=== PATIENT | female | born 1980 | race Caucasian/White ===

== ENCOUNTER 2016-11-04 23:31 | Inpatient (IN) | payer OTHER ==
[~2016-11-04] VITALS: Ht 162.6 cm; Wt 116.8 kg
[2016-11-04] MEDS ORDERED: ALBUTEROL 0.5% (NEB) 2.5 MG/0.5 ML AMP INH STA (23:35)
[2016-11-04] MEDS ORDERED: METHYLPREDNISOLONE 125 MG INJ IV STA (23:35)
[2016-11-04] MEDS ORDERED: IPRATROPIUM (NEB) 0.5 MG/2.5 ML AMP INH STA (23:35)
[2016-11-05] MEDS ORDERED: morphine 2 MG INJ IV STA (00:05)
[2016-11-05] MEDS ORDERED: ONDANSETRON 4 MG INJ IV STA (00:05)
--- NOTE | 2016-11-05 00:15 | RADRPT ---
PROCEDURE: XR Chest. CLINICAL INDICATION: Asthma TECHNIQUE: AP Portable chest. COMPARISON: No pertinent prior examinations were submitted for comparison. FINDINGS: The cardiomediastinal silhouette is normal. The lungs are clear. The osseous structures are unrema rkable. IMPRESSION: No acute findings. RPTAT: HIKT .Gilbert Perry MD, MD Date Time Electronically viewed and signed by .Gilbert Perry MD, on 11/05/2016 00:14 .T/
[2016-11-05 00:16] LABS: ADD SCAN DIFF NO
[2016-11-05 00:20] LABS: BASOPHILS % 0.4 % (0.0-2.0); EOSINOPHILS # 0.2 10^3/ul (0.0-0.5); EOSINOPHILS % 2.2 % (0.0-7.0); HEMATOCRIT 42.3 % (37.0-47.0); HEMOGLOBIN 14.5 g/dl (12.0-16.0); LYMPHOCYTES # 3.3 10^3/ul (0.8-2.9); LYMPHOCYTES % 33.9 % (15.0-51.0); MEAN CORPUSCULAR HGB CONC 34.3 g/dl (32.0-37.0); MEAN CORPUSCULAR VOLUME 93.4 fl (82.0-101.0); MEAN PLATELET VOLUME 9.8 fl (7.4-10.4); MONOCYTE # 0.7 10^3/ul (0.3-0.9); MONOCYTES % 7.2 % (0.0-11.0); NEUTROPHIL # 5.5 10^3/ul (1.6-7.5); PLATELET COUNT 263 10^3/UL (140-415); RED BLOOD COUNT 4.53 10^6/ul (4.20-5.40); RED CELL DISTRIBUTION WIDTH 12.3 % (11.5-14.5); WHITE BLOOD COUNT 9.8 10^3/ul (4.8-10.8)
[2016-11-05 00:41] LABS: CALCIUM 9.7 mg/dl (8.4-10.2); CREATININE 0.97 mg/dl (0.44-1.00); POTASSIUM 4.1 mmol/L (3.5-5.1)
--- NOTE | 2016-11-05 03:59 | ERA ---
ER Documentation Chief Complaint Date/Time DATE: 11/05/16 TIME: 03:53 Chief Complaint Pt reports asthma exacerbation r/t exposure to [place] HPI This is a 36-year-old female who comes in with reports of asthma exacerbation secondary to cleaning products patient had a jugular asthma and has been getting progressively worse when she is in a halo no relief. Given treatment EMS. No nausea no vomiting no fevers no chills ROS All systems reviewed and are negative except as per history of present illness. Allergies Allergies: Coded Allergies: No Known Allergy (Unverified , 11/04/16) PMhx/Soc History of Surgery: Yes (R hip surgery, X 3, L foot ) Anesthesia Reaction: No Hx Neurological Disorder: No Hx Respiratory Disorders: Yes (Asthma) Hx Cardiac Disorders: No Hx Psychiatric Problems: No Hx Miscellaneous Medical Probl: Yes (Chronic Sinus Infection.) Hx Alcohol Use: No Hx Substance Use: No Hx Tobacco Use: Yes Smoking Status: Current every day smoker Physical Exam Vitals Vital Signs Date Time Temp Pulse Resp B/P Pulse Ox O2 Delivery O2 Flow Rate FiO2 11/05/16 02:41 98.1 85 22 114/61 95 Nasal Cannula 2.0 11/05/16 01:20 98.1 93 22 120/79 96 Nasal Cannula 2.0 11/04/16 23:58 4 11/04/16 23:58 98 36 97 Simple Mask 8.0 11/04/16 23:38 98.1 108 24 130/71 91 Physical Exam Const: [] Head: Atraumatic Eyes: Normal Conjunctiva ENT: Normal External Ears, Nose and Mouth. Neck: Full range of motion..~ No meningismus. Resp: Clear to auscultation bilaterally Cardio: Regular rate and rhythm, no murmurs Abd: Soft, non tender, non distended. Normal bowel sounds Skin: No petechiae or rashes Back: No midline or flank tenderness Ext: No cyanosis, or edema Neur: Awake and alert Psych: Normal Mood and Affect Result Diagram: 11/04/16 2350 11/04/16 2350 Results 24 hrs Laboratory Tests Test 11/04/16 23:50 White Blood Count 9.810^3/ul Red Blood Count 4.5310^6/ul Hemoglobin 14.5g/dl Hematocrit 42.3% Mean Corpuscular Volume 93.4fl Mean Corpuscular Hemoglobin 32.0pg Mean Corpuscular Hemoglobin Concent 34.3g/dl Red Cell Distribution Width 12.3% Platelet Count 31875^3/UL Mean Platelet Volume 9.8fl Neutrophils % 56.0% Lymphocytes % 33.9% Monocytes % 7.2% Eosinophils % 2.2% Basophils % 0.4% Nucleated Red Blood Cells % 0.0/100WBC Neutrophils # 5.510^3/ul Lymphocytes # 3.310^3/ul Monocytes # 0.710^3/ul Eosinophils # 0.210^3/ul Basophils # 0.010^3/ul Nucleated Red Blood Cells # 0.010^3/ul Sodium Level 138mmol/L Potassium Level 4.1mmol/L Chloride Level 108mmol/L Carbon Dioxide Level 23mmol/L Anion Gap 11 Blood Urea Nitrogen 18mg/dl Creatinine 0.97mg/dl Glucose Level 123mg/dl Calcium Level 9.7mg/dl Current Medications Medications (Trade) Dose Ordered Sig/Chidi Route PRN Reason Start Time Stop Time Status Last Admin Dose Admin Albuterol (Proventil 0.5% (Neb)) 10 mg ONCE STAT INH 11/04/16 23:35 11/04/16 23:37 DC 11/04/16 23:58 Ipratropium [place] (Atrovent 0.02% (Neb)) 1 mg ONCE STAT INH 11/04/16 23:35 11/04/16 23:37 DC 11/04/16 23:58 Methylprednisolone Sodium Succinate (Solu-Medrol) 125 mg ONCE STAT IV 11/04/16 23:35 11/04/16 23:37 DC 11/04/16 23:56 Morphine Sulfate (morphine) 2 mg ONCE STAT IV 11/05/16 00:05 11/05/16 00:06 DC 11/05/16 00:14 Ondansetron HCl (Zofran Inj) 4 mg ONCE STAT IV 11/05/16 00:05 11/05/16 00:06 DC 11/05/16 00:14 Procedures/[facility] EKG: Rate/Rhythm: [Normal Sinus Rhythm] QRS, ST, T-waves: [No changes consistent w/ acute ischemia] Impression: [No evidence of ischemia or arrhythmia] Chest X-ray 1V Interpreted by me: Soft Tissue: No acute abnormalities Bones: No acute abnormalities Mediastinum/Cardiac Silhouette/Lungs: [No acute abnormalities] Patient's respiratory symptoms have not responded to normal outpatient therapy and will require inpatient workup, monitoring, and treatment. Accepting Care Team: Current data and ongoing care discussed. Time: 4 AM Primary Provider: Hospitalist Consulting: [XOXOXO] Outstanding Data: none Departure Diagnosis: Primary Impression: Asthma with acute exacerbation Qualified Code: J45.51 - Severe persistent asthma with acute exacerbation Condition: Serious BRADY STEVENS November 05, 2016 03:59
[2016-11-05 04:24] VITALS: PULSE 89; TEMP 98.1
[2016-11-05 05:09] VITALS: BP 107/55; RESP 18
[2016-11-05 05:43] VITALS: Ht 162.6 cm; Wt 116.8 kg
[2016-11-05] MEDS ORDERED: ACETAMINOPHEN 325 MG TAB PO PRN (06:00)
[2016-11-05] MEDS ORDERED: ONDANSETRON 4 MG INJ IV PRN (06:00)
[2016-11-05] MEDS ORDERED: ALBUTEROL/IPRATROPIUM (NEB) 3 ML AMP HHN PRN (06:00)
[2016-11-05 07:29] VITALS: BP 104/59; RESP 22
--- NOTE | 2016-11-05 07:36 | HP ---
DATE OF ADMISSION: 11/05/2016 TIME SEEN: 5:30 a.m. CHIEF COMPLAINT: Shortness of breath. HISTORY OF PRESENT ILLNESS: The patient is a 36-year-old female with a history of asthma and a smok ing history, who presented to the emergency department complaining of shortness of breath. The mikal ent states she was exposed to [place], which caused the patient to have progressively worsening sh ortness of breath. She stated that she was cleaning her bathtub when all of a sudden she felt light headed with difficulty breathing and she was sweating. When EMS arrived she was tachypneic and also reportedly she was vomiting. She was given breathing treatments, with improvement in her symptoms. When she presented to the ER her blood pressure was 130/71, heart rate 108, respiratory rate 24, tem perature 98.1, oxygen saturation 91% on room air. Her respiratory rate has been documented to be as high as 36. Chest x-ray in the ER showed no acute findings. She received 125 mg of IV Solu-Medrol and a breathing treatment with albuterol and Atrovent, with improvement in her symptoms, but the pat ient continued to be wheezing and currently she is admitted for further treatment. The patient has a history of smoking. REVIEW OF SYSTEMS: A 12-point review of systems was performed and negative except as mentioned in th e HPI. PAST MEDICAL HISTORY: As per HPI. PAST SURGICAL HISTORY: Denies. SOCIAL HISTORY: Positive for a history of smoking. ALLERGIES: NO KNOWN DRUG ALLERGIES. HOME MEDICATIONS: As needed albuterol. PHYSICAL EXAMINATION: VITAL SIGNS: Blood pressure 107/55, heart rate 79, respiratory rate 18, temperature 98.7, oxygen sa turation 96% on 2 liters. GENERAL: In no acute distress. She is not fully able to speak in full sentences and at times has t o stop, gasping for air. HEENT: No obvious head deformity. Pupils are equal and reacting to light. Extraocular muscles int act. CARDIOVASCULAR: Regular rate and rhythm, with no extra sounds. LUNGS: Positive for wheezing. ABDOMEN: Soft, nontender, nondistended. Positive bowel sounds. EXTREMITIES: No edema. NEUROLOGIC: No focal deficits. LABORATORY: CBC and BMP are unremarkable. IMAGING: Chest x-ray with no acute findings. IMPRESSION: Asthma exacerbation, status post exposure to a cleaning product. PLAN: The patient continues to be wheezing, so she will be placed on steroids and will receive vesna thing treatments with bronchodilators. Will monitor her closely. Will consider a pulmonary consult as needed. Further workup and management per clinical course. Dictated By: BRADY SWANSON/BRENNA Conf#: [id number] DID#: [id number]
[2016-11-05] MEDS: ALBUTEROL/IPRATROPIUM (NEB) 3 ML AMP HHN SCH ×3 (08:50→16:18)
[2016-11-05] MEDS ORDERED: METHYLPREDNISOLONE 125 MG INJ IV SCH (09:00)
[2016-11-05] MEDS ORDERED: ALBU18HF INHALATION (10:55)
[2016-11-05] MEDS ORDERED: ADV25050 INHALATION (10:55)
[2016-11-05] MEDS ORDERED: MED4DP PO (10:55)
--- NOTE | 2016-11-05 11:00 | PDOCDIS ---
Discharge Instructions DIAGNOSIS Discharge Diagnosis: 1. Asthma exacerbation CONDITION Patient Condition: Stable FOLLOW UP/APPOINTMENTS Appointments 1. Follow-up with your primary care provider within a week MADISON DE LA TORRE November 05, 2016 11:00
[2016-11-06] MEDS ORDERED: IBUP400T22 PO (16:33)
== END 2016-11-05 18:30 | disposition home or self-care (01) | DRG 203 ==
LOC: E/R 23:31 → MS2 11-05 03:39
PROVIDERS: ADMIT Internal Medicine; ATTEND Internal Medicine
DX: J45.901 Unspecified asthma with (acute) exacerbation (principal); Z87.891 Personal history of nicotine dependence
CPT/HCPCS: 71010; 80048; 85025; 94640; 94644; 96374; 96375; J2270; J2405; J2930

== ENCOUNTER 2016-11-06 15:15 | Emergency (ER) | payer OTHER ==
[~2016-11-06] VITALS: Ht 165.1 cm; Wt 118.0 kg
[~2016-11-06 15:15] MED LIST: ADV25050 INHALATION; ALBU18HF INHALATION; MED4DP PO
[2016-11-06 15:21] VITALS: Ht 165.1 cm; Wt 118.0 kg
[2016-11-06] MEDS ORDERED: ALBUTEROL 0.083% (NEB) 2.5 MG/3 ML AMP HHN STA (15:50)
[2016-11-06] MEDS ORDERED: METHYLPREDNISOLONE 125 MG INJ IM ONE (16:00)
[2016-11-06] MEDS ORDERED: IPRATROPIUM (NEB) 0.5 MG/2.5 ML AMP HHN ONE (16:00)
[2016-11-06] MEDS ORDERED: IBUP400T22 PO (16:33)
--- NOTE | 2016-11-06 16:39 | ERA ---
ER Documentation Chief Complaint Date/Time DATE: 11/06/16 TIME: 16:34 Chief Complaint SOB HX ASTHMA HPI This is a 36-year-old female who presents with a chief complaint of shortness of breath. Patient was admitted and discharged yesterday with a diagnosis of asthma exacerbation. Patient 3 days ago was cleaning bathtub and makes bleach and [place] away when the exacerbation started. Patient has been educated on her current condition by special systems technician during admission and that the soreness in her throat was secondary to the fumes. Patient has used albuterol 3 times with only mild to moderate relief. Patient is currently on tapered steroids after discharge for asthma symptoms. Patient has no other complaints at this time. Patient denies any other medical conditions. ROS All systems reviewed and are negative except as per history of present illness. Medications Home Meds Active Scripts Ibuprofen* (Motrin*) 400 Mg Tab, 400 MG PO Q6H Y for PAIN AND OR ELEVATED TEMP, #30 TAB Prov:YAW OLIVAS PA-C 11/06/16 Methylprednisolone* (Medrol* DOSE PACK) 4 Mg/Dose-Pack Tab.ds.pk, 4 MG PO . DIRECTED, #1 PACKET Prov:MADISON DE LA TORRE 11/05/16 Albuterol Sulfate* (Ventolin HFA*) 18 Gm Hfa.aer.ad, 2 PUFF INHALATION Q4H, #1 INHALER Prov:MADISON DE LA TORRE 11/05/16 Salmeterol Xinaf/Fluticasone* (Advair*) 250-50 Diskus Inhaler, 1 INH INHALATION BID, #1 INHALER Prov:MADISON DE LA TORRE 11/05/16 Allergies Allergies: Coded Allergies: No Known Allergy (Unverified , 11/04/16) PMhx/Soc Medical and Surgical Hx: pt denies Medical Hx, pt denies Surgical Hx History of Surgery: No Anesthesia Reaction: No Hx Neurological Disorder: No Hx Respiratory Disorders: Yes (asthma) Hx Cardiac Disorders: No Hx Psychiatric Problems: No Hx Miscellaneous Medical Probl: No Hx Alcohol Use: No Hx Substance Use: No Hx Tobacco Use: Yes Smoking Status: Unknown if ever smoked Physical Exam Vitals Vital Signs Date Time Temp Pulse Resp B/P Pulse Ox O2 Delivery O2 Flow Rate FiO2 11/06/16 16:04 85 20 96 21 11/06/16 15:21 98.6 97 18 129/72 96 Physical Exam Const: Morbidly obese 36-year-old female in no acute distress. Head: Atraumatic Eyes: Normal Conjunctiva ENT: Normal External Ears, Nose and Mouth. Neck: Full range of motion..~ No meningismus. Resp: Mild to moderate rales and rhonchi and all lung baer bilaterally. No tripoding, drooling, exertional respiratory effort. Cardio: Regular rate and rhythm, no murmurs Abd: Soft, non tender, non distended. Normal bowel sounds Skin: No petechiae or rashes Back: No midline or flank tenderness Ext: No cyanosis, or edema Neur: Awake and alert Psych: Normal Mood and Affect Results 24 hrs Current Medications Medications (Trade) Dose Ordered Sig/Chidi Route PRN Reason Start Time Stop Time Status Last Admin Dose Admin Albuterol (Proventil 0.083% (Neb)) 5 mg ONCE STAT HHN 11/06/16 15:50 11/06/16 15:52 DC 11/06/16 16:01 Ipratropium [place] (Atrovent 0.02% (Neb)) 0.5 mg ONCE ONCE HHN 11/06/16 16:00 11/06/16 16:01 DC 11/06/16 16:02 Methylprednisolone Sodium Succinate (Solu-Medrol) 125 mg ONCE ONCE IM 11/06/16 16:00 11/06/16 16:01 DC 11/06/16 16:01 Procedures/MDM Patient is being evaluated and worked up for shortness of breath/asthma. At this time I have very little suspicion for acute epiglottitis, laryngitis, tracheomalacia, or tonsillar abscess, status asthmaticus, foreign body aspiration or endangerment of the airway. Patient was given a breathing treatment along with 120 mg of Solu-Medrol in the ED. After breathing treatment and medication administration the patient says that she feels better. Reevaluation revealed improved pulmonary sounds that were clear to auscultation in all lung baer bilaterally. At this time the patient's condition has improved and her current status is appropriate for discharge. Vitals are stable will be discharged at this time with discharge instructions and return precautions. I spoke to my attending Dr. Biswas and he agrees with assessment and plan. Departure Diagnosis: Primary Impression: Asthma attack Additional Impression: Asthma Qualified Code: J45.901 - Asthma with acute exacerbation, unspecified asthma severity Condition: Stable Patient Instructions: Asthma, Acute (Adult) Additional Instructions: Follow up with your PCP within the next 1-3 days for a more thorough evaluation and a possible referral to a specialist. Return the the emergency department immediately if symptoms worsen or change. If you have any questions regarding medications, ask your pharmacist or us before you leave. If any adverse reactions occur while taking your medications, discontinue the treatment and return to the emergency department immediately. Take your medications as directed, and complete the entire course of treatment. YAW OLIVAS PA-C November 06, 2016 16:39
== END 2016-11-06 16:45 | disposition home or self-care (01) ==
LOC: FTE 15:15
DX: J45.901 Unspecified asthma with (acute) exacerbation (principal); Z87.891 Personal history of nicotine dependence
CPT/HCPCS: 94664; 96372; J2930; Z7502; Z7610

== ENCOUNTER 2018-04-09 11:13 | Day surgery (SDC) | END 2018-04-09 16:21 | disposition home or self-care (01) ==

== ENCOUNTER 2018-09-02 10:52 | Emergency (ER) | payer SELFPAY ==
[~2018-09-02] VITALS: Ht 165.1 cm; Wt 129.0 kg
[2018-09-02 11:01] VITALS: Ht 165.1 cm; Wt 129.0 kg
--- NOTE | 2018-09-02 14:38 | ERD ---
ER Documentation Chief Complaint Chief Complaint no heart beat HPI 38-year-old female referred from her clinic for evaluation for ultrasound. She is approximately 7-8 weeks by dates and heart tones unable to be appreciated at clinic. She denies bleeding, pain, fevers. She had some mild nausea since beginning of . She is a G8 para 2 with a history of by report of Rh- and multiple miscarriages. ROS All systems reviewed and are negative except as per history of present illness. Medications Home Meds No Active Prescriptions or Reported Meds Allergies Allergies: Coded Allergies: No Known Allergy (Unverified , 04/09/18) PMhx/Soc History of Surgery: Yes (R FOOT SX, HIP SX, C-SEC X3) Anesthesia Reaction: No Hx Neurological Disorder: No Hx Respiratory Disorders: Yes (ASTHMA) Hx Cardiac Disorders: No Hx Psychiatric Problems: No Hx Miscellaneous Medical Probl: No Hx Alcohol Use: No Hx Substance Use: No Hx Tobacco Use: No (04/09) Smoking Status: Former smoker FmHx Family History: No diabetes, No coronary disease, No other Physical Exam Vitals Vital Signs Date Temp Pulse Resp B/P (MAP) Pulse Ox O2 O2 Flow FiO2 Time Delivery Rate 09/02/18 98.9 107 19 138/64 97 11:01 (88) Physical Exam Const: No acute distress Head: Atraumatic Eyes: Normal Conjunctiva ENT: Normal External Ears, Nose and Mouth. Neck: Full range of motion. No meningismus. Resp: Clear to auscultation bilaterally Cardio: Regular rate and rhythm, no murmurs Abd: Soft, non tender, non distended. Normal bowel sounds Skin: No petechiae or rashes Back: No midline or flank tenderness Ext: No cyanosis, or edema Neur: Awake and alert Psych: Normal Mood and Affect Procedures/MDM Pelvic ultrasound shows approximately 8-week intrauterine without heart tones consistent with demise. Patient presents with signs and symptoms of likely missed miscarriage or demise. No signs of abdominal pain, bleeding, sepsis, additional complications. Case was discussed with her referring clinic who will see her today in the clinic with copy of her ultrasound report. Patient has no signs or symptoms of other complications of , ectopic , acute abdomen. The patient was stable with no new complaints during the ER course. Clinically, there is no current evidence to suggest meningitis, sepsis, acute abdomen, pneumonia, stroke, acute coronary syndrome, pulmonary embolism, aortic dissection or any other emergent condition appearing to require further evaluation or hospitalization. Patient counseled regarding my diagnostic impression and care plan. Prior to discharge all questions answered. Pt agrees with treatment plan and understands strict return precautions. Pt is instructed to follow up with primary care provider within 24- 48 hours. Precautionary instructions provided including instructions to return to the ER if not improving or for any worsening or changing symptoms or concerns. Departure Diagnosis: Primary Impression: demise Condition: Stable Patient Instructions: Missed Miscarriage Additional Instructions: Unable to visualize heartbeat on ultrasound today. Likely miscarriage or demise. Okay to return to clinic today after discussion with primary provider. Recheck otherwise for bleeding, fevers, new worsening symptoms. MADDIE YOUNG MD Sep 02, 2018 14:38
[2018-09-02 14:43] VITALS: BP 128/86; PULSE 89; RESP 18
== END 2018-09-02 14:43 | disposition home or self-care (01) ==
LOC: FTE 10:52
DX: O02.1 Missed abortion (principal); O99.511 Diseases of the respiratory system complicating pregnancy, first trimester; J45.909 Unspecified asthma, uncomplicated; Z3A.08 8 weeks gestation of pregnancy; Z87.891 Personal history of nicotine dependence
CPT/HCPCS: 76801; 76817

== ENCOUNTER 2018-09-08 14:43 | Day surgery (SDC) | payer OTHER ==
[2018-09-08] VITALS (15 sets, daily range): BP systolic 80–122; BP diastolic 46–74; PULSE 74–96; RESP 15–22; Ht 165.1 cm; Wt 126.7 kg
[~2018-09-08] VITALS: Ht 165.1 cm; Wt 126.7 kg
[~2018-09-08 14:43] MED LIST changes: -ADV25050 INHALATION; -ALBU18HF INHALATION; -MED4DP PO; +OXYTOCIN 30 UNITS/LR 500 ML BAG IV ONE; +ROCURONIUM 50 MG INJ ONE
[2018-09-08] MEDS ORDERED: ALBU18HF (15:36)
[2018-09-08] MEDS ORDERED: AMIT10TA6 PO (15:36)
[2018-09-08] MEDS ORDERED: ALBUTEROL INH (15:36)
--- NOTE | 2018-09-08 16:46 | PREAC ---
Date/Time of Note Date/Time of Note DATE: 09/08/18 TIME: 16:45 Anesthesia Eval and Record Evaluation Time Pre-Procedure Interview DATE: 09/08/18 TIME: 16:45 Age 38 Sex female NPO: 8 hrs Preoperative diagnosis vaginal bleeding Planned procedure D&C Past Medical History Past Medical History: Includes Pulm: Asthma GI: Morbid obesity Surgery & Anesthesia Issues No known issue Meds Anticoagulation: No Beta Ayo within 24 hr: No Reason Beta Ayo not given: Pt. not on B-Ayo Reported Medications [Albuterol Inh] No Conflict Check, PRN for SHORTNESS OF BREATH 09/08/18 Albuterol Sulfate* (Ventolin HFA*) 18 Gm Hfa.aer.ad 09/08/18 Amitriptyline Hcl* (Amitriptyline Hcl*) 10 Mg Tablet, 1 TAB PO QHS 09/08/18 Meds reviewed: Yes Allergies Coded Allergies: No Known Allergy (Unverified , 04/09/18) Allergies Reviewed: Yes Labs/Studies Labs Reviewed: Reviewed by anesthesiologist Result Diagram: 09/08/18 1525 Laboratory Tests 09/08/18 15:25 Blood Bank Test 09/08/18 16:00 Blood Type O NEGATIVE test: N/A Studies: ECG Pre-procedure Exam Last vitals Vital Signs Date Temp Pulse Resp B/P (MAP) Pulse Ox O2 O2 Flow FiO2 Time Delivery Rate 09/08/18 98.7 85 18 122/74 97 Room Air 15:38 (90) Airway: Adequate mouth opening, Adequate thyromental dist Mallampati: Mallampati II Teeth: Normal Lung: Normal Heart: Normal ASA Physical Status ASA physical status: 3 Emergency: None Planned Anesthetic General/MAC: ETT Pre-operative Attestations Prior to commencing anesthesia and surgery, the patient was re-evaluated, there was verification of: *The patient's identity *The results of appropriate recent lab work and preoperative vital signs *The above evaluation not changing prior to induction *Anesthetic plan, risk benefits, alternative and complications discussed with patient/family; questions answered; patient/family understands, accepts and wishes to proceed. JUDY OWENS Sep 08, 2018 16:46
[2018-09-08] MEDS ORDERED: DIPHENHYDRAMINE 50 MG INJ IV PRN (17:00)
[2018-09-08] MEDS ORDERED: ONDANSETRON 4 MG INJ IV PRN (17:00)
[2018-09-08] MEDS ORDERED: ALBUTEROL 0.083% (NEB) 2.5 MG/3 ML AMP HHN PRN (17:00)
[2018-09-08] MEDS ORDERED: METOCLOPRAMIDE 10 MG INJ IV PRN (17:00)
[2018-09-08] MEDS ORDERED: HYDROmorphONE 1 MG/5 ML IV SYRINGE IV PRN ×3 (17:00)
[2018-09-08] MEDS ORDERED: MEPERIDINE 25 MG INJ IV PRN (17:00)
[2018-09-08] MEDS ORDERED: FENTAnyl 50 MCG/ML VIAL IV PRN ×2 (17:00)
--- NOTE | 2018-09-08 17:35 | HP ---
Date/Time of Note Date/Time of Note DATE: 09/08/18 TIME: 17:33 Assessment/Plan VTE Prophylaxis Pharmacological prophylaxis: NA/contraindicated Pharm contraindication: low risk/ambulating Lines/Catheters IV Catheter Type (from Nrsg): Peripheral IV Assessment/Plan Assessment/Plan Missed at 8 weeks size gestation Will proceed with dilatation of cervix and suction curettage reviewed Result Diagram: 09/08/18 1525 Results 24hrs Laboratory Tests Test 09/08/18 15:25 White Blood Count 8.0 # Red Blood Count 4.45 Hemoglobin 13.8 Hematocrit 40.2 Mean Corpuscular Volume 90.3 Mean Corpuscular Hemoglobin 31.0 Mean Corpuscular Hemoglobin Concent 34.3 Red Cell Distribution Width 11.9 Platelet Count 283 Mean Platelet Volume 9.3 Immature Granulocytes % 0.300 Neutrophils % 58.7 Lymphocytes % 29.8 Monocytes % 7.8 Eosinophils % 2.9 Basophils % 0.5 Nucleated Red Blood Cells % 0.0 Immature Granulocytes # 0.020 Neutrophils # 4.7 Lymphocytes # 2.4 Monocytes # 0.6 Eosinophils # 0.2 Basophils # 0.0 Nucleated Red Blood Cells # 0.0 Prothrombin Time 11.8 L Prothrombin Time Ratio 0.9 INR International Normalized Ratio 0.86 Serum HCG, Qualitative POSITIVE HPI/ROS Admit Date/Time Admit Date/Time 09/08/2018 Hx of Present Illness 38-year-old female multigravid admitted for suction D&C because of demise 8 weeks size ROS Patient does not seem to be in acute distress Constitutional: no complaints, improved Eyes: no complaints ENT: no complaints Respiratory: no complaints Cardiovascular: no complaints Gastrointestinal: no complaints Genitourinary: no complaints Musculoskeletal: no complaints Skin: no complaints Neurologic: no complaints Endocrine: no complaints Lymphatic: no complaints Psychological: no complaints, nl mood/affect Immunologic: no complaints PMH/Family/Social Past Medical History Medical History: no pertinent history Medications Current Medications Hydromorphone HCl (Dilaudid) 0.2 mg PACU PRN IV MILD PAIN 1-3; Start 09/08/18 at 17:00; Stop 09/08/18 at 22:00 Hydromorphone HCl (Dilaudid) 0.4 mg PACU PRN IV MOD PAIN 4-6; Start 09/08/18 at 17:00; Stop 09/08/18 at 22:00 Hydromorphone HCl (Dilaudid) 0.6 mg PACU PRN IV SEVERE PAIN 7-10; Start 09/08/18 at 17:00; Stop 09/08/18 at 22:00 Fentanyl (Sublimaze) 25 mcg PACU ORDER PRN IV MILD PAIN 1-3; Start 09/08/18 at 17:00; Stop 09/08/18 at 22:00 Fentanyl (Sublimaze) 50 mcg PACU ORDER PRN IV MOD PAIN 4-6; Start 09/08/18 at 17:00; Stop 09/08/18 at 22:00 Ondansetron HCl (Zofran Inj) 4 mg PACU ORDER PRN IV NAUSEA/VOMITING; Start 09/08/18 at 17:00; Stop 09/08/18 at 22:00 Metoclopramide HCl (Reglan) 10 mg PACU ORDER PRN IV NAUSEA/VOMITING; Start 09/08/18 at 17:00; Stop 09/08/18 at 22:00 Albuterol (Proventil 0.083% (Neb)) 2.5 mg PACU ORDER PRN HHN .WHEEZING; Start 09/08/18 at 17:00; Stop 09/08/18 at 22:00 Meperidine HCl (Demerol) 25 mg PACU ORDER PRN IV .RIGORS; Start 09/08/18 at 17:00; Stop 09/08/18 at 22:00 Diphenhydramine HCl (Benadryl) 25 mg PACU ORDER PRN IV .PRURITUS; Start 09/08/18 at 17:00; Stop 09/08/18 at 22:00 Coded Allergies: No Known Allergy (Unverified , 04/09/18) Past Surgical History Past Surgical Hx: no surgical history Family History Significant Family History: no pertinent family hx Social History Alcohol Use: sober Smoking Status: Current every day smoker Drug Use: none Exam/Review of Systems Vital Signs Vitals Vital Signs Date Temp Pulse Resp B/P (MAP) Pulse Ox O2 O2 Flow FiO2 Time Delivery Rate 09/08/18 98.7 85 18 122/74 97 Room Air 15:38 (90) Exam Constitutional: alert, oriented, well developed Psych: no complaints, nl mood/affect Head: normocephalic, atraumatic Eyes: nl conjunctiva, EOMI, nl lids, nl sclera, PERRL ENMT: nl external ears & nose, nl lips & teeth, nl nasal mucosa & septum Neck: supple, non-tender Respiratory: clear to auscultation, normal air movement Cardiovascular: regular rate and rhythm, nl pulses Gastrointestinal: soft, nl liver, spleen, non-tender Genitourinary - Female: uterus (8 weeks size) Musculoskeletal: nl extremities to inspection Extremities: normal pulses Neurological: LACQUER SHADER II-XII intact, nl mental status, nl speech, nl strength Skin: nl turgor; No rash or lesions Lymph: nl lymph nodes REGI BULL MD Sep 08, 2018 17:35
[2018-09-08] MEDS ORDERED: MIDAZOLAM 1 MG/ML 2 ML INJ ONE (17:48)
[2018-09-08] MEDS ORDERED: SUCCINYLCHOLINE CHLORIDE 100 MG/5 ML SYG IV ONE (17:51)
[2018-09-08] MEDS ORDERED: FENTAnyl 50 MCG/ML VIAL ONE (17:51)
[2018-09-08] MEDS ORDERED: PROPOFOL 20 ML ONE (17:51)
[2018-09-08] MEDS ORDERED: LIDOCAINE 100 MG SYRINGE ONE (17:51)
[2018-09-08] MEDS ORDERED: SUGAMMADEX SODIUM 200 MG/2 ML VIAL IV ONE (17:58)
[2018-09-08] MEDS ORDERED: VASOPRESSIN 20 UNITS INJ ONE (18:05)
[2018-09-08] MEDS ORDERED: OXYTOCIN 10 UNIT INJ ONE (18:06)
[2018-09-08] MEDS ORDERED: METHYLERGONOVINE 0.2 MG INJ ONE (18:14)
--- NOTE | 2018-09-08 18:22 | OPR ---
Operative Report Planned Procedure Procedure date Sep 08, 2018 Procedure(s) Dilatation of cervix and suction curettage of uterus Performed by see signature line Anesthesiologist: JUDY OWENS Pre-procedure diagnosis demise and missed at 8-week [id number] Anesthesia Type: [id number] general Post-Procedure Post-procedure diagnosis Status post dilatation of cervix and suction curettage the uterus Findings Products of conception Estimated Blood Loss: 100 - 200 mls Specimen(s) Products of conception Grafts/Implant(s) none Complication(s) none Pt Condition post procedure: stable Disposition: PACU Procedure Description The patient was placed on the OR table in supine position. General anesthesia was induced. Patient was taken to lithotomy position. Perineal and vaginal area were prepped, draped for usual D and C procedure. Under satisfactory anesthesia, a weighted speculum was inserted into vagina. Anterior lip of the cervix was secured with an Allis clamp. Cervix was brought up to operative field, was progressively dilated to #8 Hegar. A #8 Vacurette was inserted into the uterine cavity. Uterine cavity was suctioned. Product of conception was removed, sent for pathology. The procedure was complemented by performing a gentle sharp curettage in uterine cavity. After making sure no product of conception is left inside the uterine cavity all of the instruments were removed from vaginal cavity. Patient was carefully returned to supine position and was transferred to postanesthesia recovery room in good condition. Estimated blood loss was between 100 200 mL REGI BULL MD Sep 08, 2018 18:22
[2018-09-08] MEDS ORDERED: IBUPROFEN 600 MG TAB PO PRN (18:30)
--- NOTE | 2018-09-08 19:06 | PAC ---
Date/Time of Note Date/Time of Note DATE: 09/08/18 TIME: 19:05 Post-Anesthesia Notes Post-Anesthesia Note Last documented vital signs Vital Signs Date Temp Pulse Resp B/P (MAP) Pulse Ox O2 O2 Flow FiO2 Time Delivery Rate 09/08/18 98.7 85 18 122/74 97 Room Air 15:38 (90) Activity: WNL Respiratory function: WNL Cardiovascular function: WNL Mental status: Baseline Pain reasonably controlled: Yes Hydration appropriate: Yes Nausea/Vomiting absent: Yes JUDY OWENS Sep 08, 2018 19:06
[2018-09-08] MEDS ORDERED: DOXYCYCLINE 100 MG TAB ONE ×2 (19:15→19:16)
[2018-09-08] MEDS ORDERED: DOXYCYCLINE 100 MG TAB PO ONE (19:30)
[2018-09-08] MEDS ORDERED: MISOPROSTOL 200 MCG TAB PO ONE (19:30)
== END 2018-09-08 20:21 | disposition home or self-care (01) ==
LOC: SDS 14:43
PROVIDERS: ATTEND Obstetrics & Gynecology
DX: O02.1 Missed abortion (principal)
CPT/HCPCS: 59820; 84703; 85025; 85610; 86850; 86885; 86900; 86901; 88305; J1170; J2001; J2210; J2250; J2405; J2590; J2790; J3010; Z7512; Z7610